=== PATIENT | male | born 1995 | race African-American/Black ===

== ENCOUNTER 2020-10-26 14:16 | Emergency (ER) | payer BC, MEDICAID ==
[~2020-10-26] VITALS: Ht 195.6 cm; Wt 99.8 kg
[2020-10-26] MEDS ORDERED: DIVA250T4 PO (14:26)
--- NOTE | 2020-10-26 14:30 | NUR ---
Heidi christina in [facility] - 10/26/20 at 1604 by GREGG pt came from home with child caregiver private home c/o dizzness and genralized weekess she took her medition triple here dose of medition pt fuuly awake and alert used own w/c able to transfer to [facility] with lucía
--- NOTE | 2020-10-26 14:45 | NUR ---
Heidi christina in [facility] - 10/26/20 at [address] scan of head via elias
[2020-10-26] MEDS: IV NORMAL SALINE 1000 ML BAG IV ONE (15:08)
[2020-10-26] MEDS: METOCLOPRAMIDE HCL 10 MG/2 ML VIAL IV ONE (15:08)
[2020-10-26] MEDS ORDERED: ACETAMINOPHEN ES 500 MG TABLET ONE (15:10)
[2020-10-26] MEDS ORDERED: METOCLOPRAMIDE HCL 10 MG/2 ML VIAL ONE (15:10)
[2020-10-26 15:15] LABS: BASOPHILS % (AUTO) 0.6 % (0.0-2.0); EOSINOPHILS % (AUTO) 0.9 % (0.0-7.0); HEMATOCRIT 45.8 % (36.7-47.1); HEMOGLOBIN 15.4 g/dL (12.5-16.3); LYMPHOCYTES # (AUTO) 0.8 K/uL (20.0-40.0); LYMPHOCYTES % (AUTO) 16.2 % (20.5-51.5); MEAN CORPUSCULAR HEMOGLOBIN 31.8 uug (23.8-33.4); MEAN CORPUSCULAR HGB CONC 34 g/dL (32.5-36.3); MONOCYTES # (AUTO) 0.4 K/uL (2.0-10.0); MONOCYTES % (AUTO) 8.8 % (0.0-11.0); NEUTROPHILS # (AUTO) 3.5 K/uL (1.8-8.9); NEUTROPHILS % (AUTO) 73.5 % (38.5-71.5); PLATELET COUNT (AUTO) 216 K/uL (152-348); RED BLOOD CELL COUNT(AUTO) 4.83 MIL/uL (4.06-5.63); WHITE BLOOD COUNT (AUTO) 4.8 K/uL (3.6-10.2)
[2020-10-26 15:17] LABS: CREATININE 1.3 mg/dL (0.6-1.3); POTASSIUM 4.4 mmol/L (3.5-5.1)
[2020-10-26] MEDS: ACETAMINOPHEN ES 500 MG TABLET PO ONE (15:18)
[2020-10-26 15:23] LABS: BILIRUBIN,DIRECT 0.2 mg/dL (0.0-0.2); BILIRUBIN,TOTAL 0.6 mg/dL (0.2-1.0); MAGNESIUM 2.3 mg/dL (1.8-2.4); PHOSPHOROUS 3.1 mg/dL (2.5-4.9); TOTAL PROTEIN, SERUM 7.6 g/dL (6.4-8.2)
[2020-10-26] MEDS ORDERED: IBUP-1957 PO (15:43)
--- NOTE | 2020-10-26 15:56 | NUR ---
Patient discharged to home in stable condition. Written and verbal after care instructions given. Patient verbalizes understanding of instructions. Stressed follow up or return to ER for worsening s/s.pt walks in steady gait. pt says feels better.
[2020-10-26 15:58] VITALS: BP 132/59
--- NOTE | 2020-10-26 16:50 | NUR ---
pt awake and alert transfer to room 302 via pt own w/c stable vs and condition dineses pain BP 125/60MMHG HR 66B/MIN rr 18/min o2 sat 96% on room air
== END 2020-10-26 16:06 | disposition home or self-care (01) ==
LOC: ER 14:16
DX: R51.9 Headache, unspecified (principal); G40.909 Epilepsy, unspecified, not intractable, without status epilepticus; S06.9X0S Unspecified intracranial injury without loss of consciousness, sequela; X58.XXXS Exposure to other specified factors, sequela
CPT/HCPCS: 36415; 70450; 80048; 80076; 80164; 83735; 84100; 85025; 96361; 96374; 99284; J2765; A4663; A9150; J7030

== ENCOUNTER 2022-06-13 02:23 | Emergency (ER) | payer BC ==
[~2022-06-13] VITALS: Ht 195.6 cm; Wt 108.9 kg
[~2022-06-13 02:23] MED LIST: DIVA250T4 PO; IBUP-1957 PO
[2022-06-13] MEDS ORDERED: TDAP DIPH,PERTUSS,TET VAC/PF 0.5 ML DISP.SYRIN IM ONE ×2 (03:14→03:15)
--- NOTE | 2022-06-13 03:45 | NUR ---
Patient discharged to home in stable condition. Written and verbal after care instructions given. Patient verbalizes understanding of instructions. Stressed follow up or return to ER for worsening s/s. Patient is a/ox4,NAD noted. Patient is able to walk with steady gait
[2022-06-13 04:32] VITALS: BP 124/71
== END 2022-06-13 03:32 | disposition home or self-care (01) ==
LOC: ER 02:28
DX: S61.512A Laceration without foreign body of left wrist, initial encounter (principal); W26.0XXA Contact with knife, initial encounter; Y93.89 Activity, other specified; Y92.512 Supermarket, store or market as the place of occurrence of the external cause; Y99.0 Civilian activity done for income or pay
CPT/HCPCS: 90715; A4663